=== PATIENT | female | born 1950 ===

== ENCOUNTER 2016-03-18 02:18 | Emergency (ER) | payer MEDICARE ==
[2016-03-18] MEDS ORDERED: Morphine INJ* 4 MG/ML 1 ML CARPUJECT SUBCUT ONE (02:20)
[2016-03-18 02:53] VITALS: BP 118/56
--- NOTE | 2016-03-18 03:32 | ED ---
Jaylan Gray Matthew, scribed for Edgardo Burns MD on 03/18/16 at 0300 . Upper Extremity Pain - HPI Summary HPI Summary: A 65 y/o female presents to the ED with left shoulder pain since 4 hours ago. The patient had her shoulder dislocated in October while at [facility]. At that time, she fell onto her shoulder. She has been living at [facility] for rehabilitation. The pain is rated 10/10 in severity and described as burning. She presents to the ED today, because the nurses have been unable to get her pain under control. She was given oxycodone [employer]. - History of Current Complaint Chief Complaint: EDExtremityUpper Stated Complaint: LEFT ARM PAIN Time Seen by Provider: 03/18/16 02:19 Hx Obtained From: Patient Onset/Duration: Started Hours Ago, Atraumatic, Still Present Timing: Constant Severity Initially: Moderate Severity Currently: Moderate Pain Location: Shoulder - Left Character: Burning - Allergies/Home Medications Allergies/Adverse Reactions: Allergies Allergy/AdvReac Type Severity Reaction Status Date / Time Cephalexin [From Keflex] Allergy Unknown Verified 03/18/16 02:55 Reaction Details Codeine Allergy Unknown Verified 03/18/16 02:55 Reaction Details Penicillins Allergy Unknown Verified 03/18/16 02:54 Reaction Details Pregabalin [From Lyrica] Allergy Unknown Verified 03/18/16 02:55 Reaction Details Sulfa Antibiotics Allergy Unknown Verified 03/18/16 02:54 Reaction Details PMH/Surg Hx/FS Hx/Imm Hx Cardiovascular History: Reports: Hx Atrial Fibrillation, Hx Hypertension Musculoskeletal History: Reports: Hx of Fracture(s) - Shoulder, Ankle Neurological History: Reports: Hx CVA Psychiatric History: Reports: Hx Depression Infectious Disease History: No Infectious Disease History: Denies: Traveled Outside the [place] in Last 30 Days - Family History Known Family History: Positive: Cardiac Disease, Hypertension Family History: FHx of CVA, TIA - Social History Alcohol Use: None Hx Substance Use: No Substance Use Type: Reports: None Hx Tobacco Use: Yes Smoking Status (MU): Former Smoker Review of Systems Constitutional: Negative Eyes: Negative ENT: Negative Cardiovascular: Negative Respiratory: Negative Gastrointestinal: Negative Genitourinary: Negative Positive: Myalgia - left shoulder pain Skin: Negative Neurological: Negative Psychological: Normal All Other Systems Reviewed And Are Negative: Yes Physical Exam Triage Information Reviewed: Yes Vital Signs On Initial Exam: Initial Vitals Temp Pulse Resp BP Pulse Ox 97.8 F 85 16 118/56 92 03/18/16 02:20 03/18/16 02:20 03/18/16 02:20 03/18/16 02:20 03/18/16 02:20 Vital Signs Reviewed: Yes Appearance: Positive: Pain Distress - mild, Thin Skin: Positive: Warm ENT: Positive: Hearing grossly normal Neck: Positive: Supple Respiratory/Lung Sounds: Positive: Breath Sounds Present Cardiovascular: Positive: RRR Abdomen Description: Positive: Nontender, Soft Musculoskeletal: Positive: Other - obvious lt shoulder deformity, pain with movement Diagnostics - Vital Signs Vital Signs Temp Pulse Resp BP Pulse Ox 03/18/16 02:20 97.8 F 85 16 118/56 92 - Laboratory Lab Statement: Any lab studies that have been ordered have been reviewed, and results considered in the medical decision making process. - Radiology Shoulder XR Xray Interpretation: Positive (See Comments) - fractured humerus Radiology Interpretation Completed By: ED Physician Re-Evaluation - Re-Evaluation First Eval Change: Improved Course/Dx - Course Assessment/Plan: A 65 y/o female presents to the ED with left shoulder pain since 4 hours ago. The patient had her shoulder dislocated in October while at [facility]. Shoulder XR shows a fractured humerus. She will be discharged home and follow-up with her PCP. - Diagnoses Provider Diagnoses: Humeral head fracture Discharge - Discharge Plan Condition: Stable Disposition: HOME Patient Education Materials: Arm Fracture in Adults (ED) Referrals: [facility] [Outside] Additional Instructions: Please follow-up with your primary care physician in 3 days and continue your current pain medication as prescribed. The documentation as recorded by the Jaylan michael Matthew accurately reflects the service I personally performed and the decisions made by me, Edgardo Burns MD.
[2016-03-18] MEDS ORDERED: Ketorolac INJ* 30 MG/ML 1 ML VIAL IM ONE (04:19)
[2016-03-18] MEDS ORDERED: Ketorolac INJ* 30 MG/ML 1 ML VIAL ONE (04:20)
--- NOTE | 2016-03-18 08:49 | RAD ---
Indication: Left shoulder pain and injury. 2 views of left shoulder demonstrates anterior inferior dislocation of the left humeral head. Fracture of the glenoid is likely present. AC joint arthritis is noted. IMPRESSION: Anterior inferior dislocation of the humeral head. Likely fracture of the glenoid labrum.
== END 2016-03-18 04:26 | disposition home or self-care (01) ==
LOC: ED 02:18
DX: S42.202A Unspecified fracture of upper end of left humerus, initial encounter for closed fracture (principal); M25.512 Pain in left shoulder; Z87.891 Personal history of nicotine dependence; W19.XXXA Unspecified fall, initial encounter; Y93.9 Activity, unspecified; Y92.9 Unspecified place or not applicable
CPT/HCPCS: 99282; J1885; J2270